=== PATIENT | male | born 1975 | race Caucasian/White ===

== ENCOUNTER 2024-02-10 14:17 | Emergency (ER) | payer OTHER ==
[~2024-02-10] VITALS: Ht 177.8 cm; Wt 82.0 kg
[2024-02-10 14:46] VITALS: O2SAT 98
[2024-02-10] MEDS ORDERED: IBUP-2030 MT (16:49)
[2024-02-10 17:07] VITALS: BP 147/79; PULSE 72; RESP 18; TEMP 36.61404; O2SAT 98
== END 2024-02-10 17:08 | disposition home or self-care (01) ==
LOC: ER 14:17
DX: M25.511 Pain in right shoulder (principal); V87.8XXA Person injured in other specified noncollision transport accidents involving motor vehicle (traffic), initial encounter; Y93.89 Activity, other specified; Y92.89 Other specified places as the place of occurrence of the external cause; Y99.8 Other external cause status
CPT/HCPCS: 71045; 73030; 99284